=== PATIENT | female | born 1990 | race Hispanic/Latino ===

== ENCOUNTER 2025-07-27 10:10 | Emergency (ER) | payer SELFPAY ==
[2025-07-27 10:42] LABS: CAUTI Indications for Culture Pregnancy; Glucose, Urine (Dipstick) Normal (Negative); Leukocyte Negative Leu/uL (Negative); Protein, Urine (Dipstick) 20 mg/dL (Neg-Trace); RBC/HPF None Seen HPF (0-3); Specific Gravity, Urine 1.025 (1.002-1.036); WBC/HPF 0-3 HPF (0-3)
[2025-07-27 10:43] LABS: Bacteria/HPF 1+ HPF (None Seen)
[2025-07-27 10:44] LABS: Urine Culture Reflex Yes Yes
[2025-07-27] MEDS ORDERED: Mag-Al 1200 mg/1200 mg/30 ML UDCUP ONE (10:47)
[2025-07-27] MEDS ORDERED: Lidocaine Viscous Sol 2% 15 ml UD Cup ONE (10:47)
[2025-07-27 10:52] LABS: #Basophils 0.03 10x3/uL (0.0-0.2); #Eosinophils 0.04 10x3/uL (0.0-0.7); #Monocytes 0.69 10x3/uL (0.11-0.59); #Neutrophils 4.83 10x3/uL (1.40-6.50); %Basophils 0.4 % (0.0-1.0); %Eosinophils 0.5 % (0.0-10.0); %Lymphocytes 31.3 % (21.0-51.0); %Monocytes 8.4 % (0.0-10.0); %Neutrophils 58.9 % (42.0-75.0); Hematocrit 39.0 % (36.0-47.0); Hemoglobin 12.9 g/dL (12.0-16.0); Mean Corpuscular Hemoglobin 28.1 pg (27.0-31.0); Mean Corpuscular Volume 85.0 fL (78.0-98.0); Platelet Count 287 10x3/uL (130-400); Red Blood Cell (RBC) Count 4.59 mill/uL (4.20-5.40); White Blood Cell (WBC) Count 8.20 10x3/uL (4.8-10.8)
[2025-07-27 11:06] LABS: ALT (SGPT) 31 U/L (Less than 34); AST (SGOT) 22 U/L (11-34); Albumin 4.1 g/dL (3.1-4.5); Alkaline Phosphatase 60 U/L (40-110); Anion Gap 9 mmol/L (10-20); BUN (Urea Nitrogen) 5 mg/dL (7.0-18.7); Bilirubin, Total 0.3 mg/dL (0.3-1.2); Calc. Creatinine Clearance 0 mL/min (70-130); Calcium 9.6 mg/dL (7.8-10.44); Carbon Dioxide 22 mmol/L (22-29); Chloride 104 mmol/L (98-107); Globulin 3.3 g/dL (2.4-3.5); Glucose 85 mg/dL (70-105); Lipase 36 U/L (8-78); Potassium 3.6 mmol/L (3.5-5.1); Sodium 131 mmol/L (136-145)
== END 2025-07-27 13:00 | disposition home or self-care (01) ==
LOC: ERS 10:10
DX: O99.891 Other specified diseases and conditions complicating pregnancy (principal); R10.13 Epigastric pain; Z55.6 Problems related to health literacy; Z3A.13 13 weeks gestation of pregnancy
CPT/HCPCS: 36415; 76705; 76801; 80053; 81001; 83690; 84702; 85025; 87086; 93005; Q0162